=== PATIENT | male | born 1985 | race Caucasian/White ===

== ENCOUNTER 2020-05-17 17:17 | Emergency (ER) | payer OTHER ==
[~2020-05-17] VITALS: Ht 177.8 cm; Wt 120.2 kg
[2020-05-17 17:24] VITALS: Ht 177.8 cm; Wt 120.2 kg
[2020-05-17 19:11] VITALS: BP 134/78
== END 2020-05-17 19:11 | disposition home or self-care (01) ==
LOC: ED 17:17
DX: S09.90XA Unspecified injury of head, initial encounter (principal); R11.0 Nausea; R42 Dizziness and giddiness; W18.09XA Striking against other object with subsequent fall, initial encounter; Y93.89 Activity, other specified; Y92.89 Other specified places as the place of occurrence of the external cause; Y99.8 Other external cause status